=== PATIENT | female | born 1945 | race Caucasian/White ===

== ENCOUNTER 2022-08-20 07:52 | Day surgery (SDC) | payer MEDICARE, SELFPAY ==
[2022-07-06 11:29] VITALS: BMI 23.2
[2022-08-06 09:32] VITALS: BMI 24.9
[2022-08-20 08:24] VITALS: BP 141/85; PULSE 77; RESP 12; TEMP 36.8; O2SAT 99; BMI 23.6
[2022-08-20] MEDS: LACTATED RINGERS 1,000 ML 150 ML IV CONT (08:35)
--- NOTE | 2022-08-20 08:46 | WPDANESEPPF ---
Anes - Initial Pre Proc Eval Procedure: Operation Date: 08/20/22 09:45 Proposed Procedures p Esophagogastroduodenoscopy - Bradford Longoria MD Date/Time: 08/20/22 08:46 Surgeon: Bradford Longoria MD Pre Op Diagnosis: Gerd Patient Data Age: 76 Gender: F Height: 1.5 m Weight: 53.2 kg Last Vital Signs Temp 36.8 C 08/20/22 08:24 Pulse 77 08/20/22 08:24 Resp 12 08/20/22 08:24 BP 141/85 H 08/20/22 08:24 Pulse Ox 99 08/20/22 08:24 O2 Del Method Room Air 08/20/22 08:24 Allergies Allergy/AdvReac Type Severity Reaction Status Date / Time ezetimibe Allergy Intermediate MUSCLE Verified 08/20/22 08:21 ACHES erythromycin base Allergy Unknown Gastrointestinal Verified 08/20/22 08:21 Upset MACROLIDES Allergy Unknown Unknown Uncoded 08/06/22 09:30 Home Medications Medication Instructions Recorded Confirmed Type simvastatin 40 mg tablet 40 mg PO DAILY #90 tabs 06/25/22 08/20/22 Rx aspirin 81 mg tablet,delayed 81 mg PO DAILY 07/04/22 08/20/22 History release mecobalamin (vitamin B12) 1,000 4,000 mcg PO DAILY 07/04/22 08/20/22 History mcg chewable tablet multivitamin with minerals-folic 1 tablet PO DAILY 07/04/22 08/20/22 History acid 200 mcg chewable tablet (Adult Multivitamin Gummies) famotidine 20 mg tablet (Pepcid) 20 mg PO HS 08/06/22 08/20/22 History Patient hx anesthesia problems: none Family hx anesthesia problems: none Results Review: All pre-operative results and documents have been reviewed as part of the pre-operative evaluation. [facility] Past Medical History Medical History Breast cancer screening by mammogram Dyslipidemia Dyslipidemia GERD (gastroesophageal reflux disease) History of peptic ulcer Ovarian failure Periodic health assessment, general screening, adult RUQ abdominal pain Tricuspid regurgitation Uterine cancer Vitamin B12 deficiency Surgical History Surgical History Hx of cholecystectomy Hx of cholecystectomy S/P GILMAR-BSO Family History Family History Other Diabetes mellitus Family history of cardiovascular disease Social History Social History (Updated 08/20/22 @ 08:47 by Osmany Davis MD) Smoking packs per day: 0.5 Smoking cigarettes per day: 10.0 Years smoked: 3 Smoking pack-years: 1.50 Smoking status: Former smoker Tobacco type: cigarettes Alcohol intake: never Substance use: never Substance use type: does not use Living arrangements: with family Additional occupation/education comments: Own a business Gender identity (if verbalized by the patient): Female Spiritual care concerns: No Anes - Eval Final PreProcedure Day of Procedure 08/20/22 08:46 Patient weight: normal Heart: regular rate and rhythm Lungs: clear to auscultation Airway: Mallampati scale class II Neurological: alert and oriented Last oral intake: >/= 8 hours ASA classification: II Emergent: no Anesthetic plan: proceed Anesthesia type and monitoring: general GIVS and standard monitoring Results Review: All pre-operative results and documents have been reviewed as part of the pre-operative evaluation. Informed Consent: The patient's anesthetic plan and its attendant risks and benefits were discussed with the patient/family/POA. Questions were solicited and answers provided to the satisfaction of the patient/family/POA.
--- NOTE | 2022-08-20 08:56 | PM.HPGS ---
History of Present Illness History of Present Illness Consent: Risks, benefits, and alternatives have been discussed and questions answered. Patient agrees to proceed with procedure. Chief complaint: Gerd Narrative: Elaina Juan is a 76 year old female Presents for EGD. Patient states that for many years she has had epigastric pain that is burning associated with belching she presents today for EGD because of chronicity of symptoms. She states that she takes Pepcid at bedtime and this alleviates her symptoms. Occasionally she will supplement this with a Tums throughout the day. She denies any dysphagia. Patient has had no bleeding. Family history is noncontributory. Patient presents today for EGD because of chronic GE reflux disease. [facility] Past Medical History Medical History Breast cancer screening by mammogram Dyslipidemia Dyslipidemia GERD (gastroesophageal reflux disease) History of peptic ulcer Ovarian failure Periodic health assessment, general screening, adult RUQ abdominal pain Tricuspid regurgitation Uterine cancer Vitamin B12 deficiency Surgical History Surgical History Hx of cholecystectomy Hx of cholecystectomy S/P GILMAR-BSO Family History Family History Other Diabetes mellitus Family history of cardiovascular disease Social History Social History (Updated 08/20/22 @ 08:47 by Osmany Davis MD) Smoking packs per day: 0.5 Smoking cigarettes per day: 10.0 Years smoked: 3 Smoking pack-years: 1.50 Smoking status: Former smoker Tobacco type: cigarettes Alcohol intake: never Substance use: never Substance use type: does not use Living arrangements: with family Additional occupation/education comments: Own a business Gender identity (if verbalized by the patient): Female Spiritual care concerns: No Meds Home Medications and Allergies Home Medications Medication Instructions Recorded Confirmed Type simvastatin 40 mg tablet 40 mg PO DAILY #90 tabs 06/25/22 08/20/22 Rx aspirin 81 mg tablet,delayed 81 mg PO DAILY 07/04/22 08/20/22 History release mecobalamin (vitamin B12) 1,000 4,000 mcg PO DAILY 07/04/22 08/20/22 History mcg chewable tablet multivitamin with minerals-folic 1 tablet PO DAILY 07/04/22 08/20/22 History acid 200 mcg chewable tablet (Adult Multivitamin Gummies) famotidine 20 mg tablet (Pepcid) 20 mg PO HS 08/06/22 08/20/22 History Allergies Allergy/AdvReac Type Severity Reaction Status Date / Time ezetimibe Allergy Intermediate MUSCLE Verified 08/20/22 08:21 ACHES erythromycin base Allergy Unknown Gastrointestinal Verified 08/20/22 08:21 Upset MACROLIDES Allergy Unknown Unknown Uncoded 08/06/22 09:30 Vital Signs Vital Signs - 24 hr 08/20/22 08:24 Temperature 98.2 F Pulse Rate 77 Respiratory Rate 12 Blood Pressure 141/85 H Pulse Oximetry 99 Oxygen Delivery Room Air Exam Narrative: Physical exam reveals patient to be alert. Vital signs stable. HEENT exam is unremarkable. Patient is anicteric. Lungs are clear to auscultation and percussion. Heart is without murmur or extra sounds. Abdomen bowel sounds are present soft nontender with no organomegaly. Digital external rectal exam is normal. Assessment and Plan Assessment and plan (1) GERD (gastroesophageal reflux disease): Code(s): K21.9 - Gastro-esophageal reflux disease without esophagitis Status: Acute Assessment and Plan: Patient has chronic acid reflux manifested by belching heartburn. Appears currently well controlled on Pepcid. Plan to continue anti-reflux measures. An EGD will be performed because of chronicity of symptoms. Further recommendations may be given after endoscopy.
[2022-08-20 09:38] VITALS: BP 110/60; PULSE 72; RESP 16; O2SAT 98
[2022-08-20 09:48] VITALS: BP 100/65; PULSE 82; RESP 20; O2SAT 98
--- NOTE | 2022-08-20 09:49 | WPDANESPN ---
Anes - Prog Note Post-Op Date/Time: 08/20/22 09:49 Cardiovascular status: normal Respiratory status: normal Airway patency: baseline Mental status: baseline Post-Op hydration status: normal Vital Signs: Last Vital Signs Temp 36.8 C 08/20/22 08:24 Pulse 77 08/20/22 08:24 Resp 12 08/20/22 08:24 BP 141/85 H 08/20/22 08:24 Pulse Ox 99 08/20/22 08:24 O2 Del Method Room Air 08/20/22 08:24 Pain Score (VAS): 0/10 I/O: Intake & Output 08/19/22 08/20/22 08/20/22 23:59 07:59 15:59 Intake Total 400 Balance 400 Patient Feedback: Patient satisfied with anesthetic care.
[2022-08-20 09:58] VITALS: BP 125/72; PULSE 73; RESP 20; O2SAT 100
== END 2022-08-20 10:13 | disposition home or self-care (01) ==
PROVIDERS: PCP Internal Medicine; Visit Provider Internal Medicine Gastroenterology
PROC: 0DJ08ZZ Inspection of Upper Intestinal Tract, Via Natural or Artificial Opening Endoscopic (ICD-10-PCS; CPT 43235; principal; 2022-08-20 09:45)
DX: K21.9 Gastro-esophageal reflux disease without esophagitis (principal)
CPT/HCPCS: 43450

== ENCOUNTER 2023-03-07 12:45 | Outpatient (RCR) | payer MEDICARE, SELFPAY ==
--- NOTE | 2023-02-07 10:53 | PTOPEVAL1 ---
Assessment and note entered by Maribel Dc, PT Evaluation Information Assessment Status Evaluation Diagnosis Right and Left hip pain Onset couple years Subjective Information Reports was weedwacking yesterday and bothered about 5-10 minutes then went away. Pain increases with activity, sitting around it doesn't bother. Outside work and house cleaning. Reported Pain Level Pain Score 0,0: Self Report Additional Pain Score Comments Denies referred pain symptoms Assessment PT Clinical Summary Pt presents w/ c/o hip pain that is moderate at times with high level activities, reduces with rest. Pt reports she uses heat sometimes in the winter for her discomfort, but does not require medication to control her pain. States her pain at the moment doesn't keep her from doing activities however she does have pain with activities such as kitchen and yard work. Pt evaluation shows decresaed hip ROM in flexion R>L, (+) tight piriformis bilat R>L, tight lateral capsule R>L, hip musculature weakness. Pt will benefit from therapy to address deficits and improve function without discomfort, educate on maintaining strength to promote narcotics agent function. Plan of Care Interventions Hot Pack/Cold Pack,Manual Therapy,Neuro Re- education,Patient/Caregiver Educati,Therapeutic Activities,Therapeutic Exercise PT Services Indicated Yes Treatment Frequency and 1x weekly x 4 weeks Duration These treatments will address the objective and functional deficits as defined above. The patient will be advanced safely and appropriately in order for the patient to progress towards his/her prior level of function. Additional exercises will be introduced and as well as a comprehensive home exercise program upon discharge, if needed, ?to ensure carryover of functional gains achieved in the clinic. This treatment plan has been reviewed and agreement upon by the patient.
--- NOTE | 2023-03-07 13:02 | PTOPDC ---
Assessment and note entered by Maribel Dc, PT Assessment Status Discharge Diagnosis Right and Left hip pain Onset couple years Subjective Information Pt states pain has improved a little . States is learning not to use that hip as much like modifying carrying her water. Reported Pain Level Pain Score 0,0: Self Report Assessment PT Clinical Summary Pt reports she is doing well with her exercises and activities. States she has less pain overall, only did a heating pad once last week but it was on a day she was very active. She does show improved ROM and strength in both hips today and has mostly met her therapy related goals. She is very active and demonstrates independence in her home program. Thus patient is being discharged from her plan at this time.
== END 2023-03-07 14:14 | disposition home or self-care (01) ==
LOC: ANHHIPT 12:45
PROVIDERS: PCP Physician Assistant Medical; Visit Provider Physician Assistant Medical
DX: M25.551 Pain in right hip (principal); M25.552 Pain in left hip
CPT/HCPCS: 97110; 97112; 97161